=== PATIENT | female | born 1955 | race Caucasian/White ===

== ENCOUNTER → 2017-12-04 11:38 | Outpatient (CLI) | payer OTHER, SELFPAY ==
[2017-12-10 13:12] LABS: HPV APTIMA, High Risk Negative (Negative)
== END ==
PROVIDERS: Visit Provider Obstetrics & Gynecology
DX: Z01.419 Encounter for gynecological examination (general) (routine) without abnormal findings (principal); Z12.4 Encounter for screening for malignant neoplasm of cervix
CPT/HCPCS: 88175; G0145